=== PATIENT | male | born 1960 | race Caucasian/White ===

== ENCOUNTER 2020-07-19 19:31 | Emergency (ER) | payer BC ==
[~2020-07-19] VITALS: Ht 175.3 cm; Wt 95.3 kg
[2020-07-19 19:33] VITALS: BP 121/85; Ht 175.3 cm; Wt 95.3 kg
== END 2020-07-19 21:25 | disposition home or self-care (01) ==
LOC: ED 19:31
DX: J40 Bronchitis, not specified as acute or chronic (principal); R19.7 Diarrhea, unspecified
CPT/HCPCS: Q0092